=== PATIENT | female | born 1995 | race Caucasian/White ===

== ENCOUNTER 2021-08-19 16:09 | Emergency (ER) | payer OTHER ==
[~2021-08-19] VITALS: Ht 172.7 cm; Wt 140.6 kg
[2021-08-19] MEDS ORDERED: KETOROLAC TROMETH 30 MG/ML 1ML VIAL IV ONE ×2 (17:00→22:00)
[2021-08-19 17:36] LABS: Basophils # (auto) 0.1 10 ^3/uL (0-0.2); Basophils % (auto) 0.5 % (0.0-2.0); Eosinophils # (auto) 0 10 ^3/uL (0-0.8); Eosinophils % (auto) 0.1 % (0.0-7.0); Hematocrit 39.2 % (36.0-46.0); Hemoglobin 13.1 g/dL (12.2-16.2); Lymphocytes # (auto) 1.5 10 ^3/uL (0.4-5.4); Mean Corpuscular Hemoglobin 29.7 pg (28.0-32.0); Mean Corpuscular Hgb Conc. 33.4 g/dL (32.0-36.0); Mean Corpuscular Volume 89.1 fL (80.0-100.0); Monocytes # (auto) 0.9 10 ^3/uL (0-1.3); Monocytes % (auto) 5.4 % (0.0-12.0); Neutrophils # (auto) 13.7 10 ^3/uL (1.6-8.6); Red Cell Distribution Width 14.1 % (11.8-14.3); White Blood Cell 16.2 10^3/uL (4.4-10.8)
[2021-08-19 17:54] LABS: Albumin 3.7 g/dL (3.4-5.0); BUN/Creatinine Ratio 15.6; Calcium 9.4 mg/dL (8.5-10.1); Potassium 3.7 mmol/L (3.5-5.1)
[2021-08-19 17:56] LABS: Bilirubin, Total 0.4 mg/dL (0.2-1.0); Total Protein 7.4 g/dL (6.4-8.2)
[2021-08-19] MEDS ORDERED: IOHEXOL 300 MG/ML 100ML BOTTLE IJ ONE (19:17)
[2021-08-19] MEDS ORDERED: LIDOCAINE HCL 2% TOP JELLY 5ML TOP ONE (21:45)
[2021-08-19] MEDS ORDERED: BAC09TP TOP (22:16)
[2021-08-19] MEDS ORDERED: CEPH-509 PO (22:16)
[2021-08-19] MEDS ORDERED: NAP500T PO (22:16)
[2021-08-19 23:14] VITALS: BP 131/41
== END 2021-08-19 23:05 | disposition home or self-care (01) ==
LOC: EDBD 16:09 → ER 16:09
DX: S81.812A Laceration without foreign body, left lower leg, initial encounter (principal); S00.83XA Contusion of other part of head, initial encounter; R07.89 Other chest pain; R10.9 Unspecified abdominal pain; V49.49XA Driver injured in collision with other motor vehicles in traffic accident, initial encounter; Y93.89 Activity, other specified; Y92.410 Unspecified street and highway as the place of occurrence of the external cause; Y99.8 Other external cause status
CPT/HCPCS: 12002; 36415; 70450; 71045; 71260; 73110; 73562; 74177; 80053; 84702; 85025; 96374; 96376; 99285; J1885; Q9967